=== PATIENT | male | born 1940 | race Caucasian/White ===

== ENCOUNTER 2017-05-06 08:34 | Outpatient (CLI) | payer MEDICARE, BC ==
--- NOTE | 2017-05-06 10:03 | ULT ---
ABDOMINAL AORTIC ULTRASOUND: DATE: 05/06/17. COMPARISON: None. HISTORY: Assess for abdominal aortic aneurysm, screening exam. TECHNIQUE: Multiplanar, sarabia scale sonographic imaging of the abdominal aorta is obtained. Provided images inc lude color flow and spectral analysis of the abdominal aorta and common iliac arteries respectively. FINDINGS: On sagittal imaging in the AP dimension, the mid abdominal aorta measures up to 1.7 cm and the dista l abdominal aorta measures up to 1.6 cm. Bilateral common iliac arteries are patent. On transverse imaging, distal abdominal aorta measures 1.8 x 1.6 cm, mid abdominal aorta measures 1.7 x 1.5 cm, a nd proximal abdominal aorta measures 2.6 x 2.4 cm. No sonographic evidence of abdominal aortic aneu rysm within the imaged portions of the abdominal aorta. IMPRESSION: No sonographic evidence of abdominal aortic aneurysm. POS: [facility]
== END 2017-05-06 08:35 | disposition home or self-care (01) ==
LOC: ULT 08:34
PROVIDERS: ATTEND Family Medicine
DX: Z13.6 Encounter for screening for cardiovascular disorders (principal)
CPT/HCPCS: 76775

== ENCOUNTER 2018-06-30 09:41 | Emergency (ER) | payer MEDICARE, BC ==
[2018-06-30 10:40] LABS: #Eosinphils 0.1 thou/uL (0.0-0.7); #Lymphocytes 1.1 thou/uL (1.20-3.40); #Monocytes 0.7 thou/uL (0.11-0.59); #Neutrophils 4.4 thou/uL (1.40-6.50); %Basophils 0.5 % (0.0-1.0); %Eosinophils 1.6 % (0.0-10.0); %Lymphocytes 17.3 % (21.0-51.0); %Monocytes 10.4 % (0.0-10.0); %Neutrophils 70.2 % (42.0-75.0); Hemoglobin 15.1 g/dL (14.0-18.0); Mean Corpuscular HGB CONC 31.3 g/dL (32.0-36.0); Mean Corpuscular Hemoglobin 30.7 pg (27.0-31.0); Mean Corpuscular Volume 97.9 fL (78.0-98.0); Mean Platelet Volume 7.8 fL (7.4-10.4); Platelet Count 156 thou/uL (130-400); RBC Distribution Width 12.9 % (11.5-14.5); Red Blood Cell (RBC) Count 4.91 mill/uL (4.70-6.10); White Blood Cell (WBC) Count 6.3 thou/uL (4.8-10.8)
--- NOTE | 2018-06-30 11:03 | RAD ---
ONE VIEW CHEST: History: Chest pain. Comparison: None. FINDINGS: Normal cardiac silhouette. The pulmonary vessels and hilum are normal. Costophrenic angles are clear. No mass. No consolidation. No pneumothorax or osseous abnormality. IMPRESSION: No acute cardiopulmonary process. POS: [facility]
[2018-06-30 11:08] LABS: ALT (SGPT) Less than 7 U/L (8-55); AST (SGOT) 24 U/L (5-34); Albumin 4.2 g/dL (3.4-4.8); Alkaline Phosphatase 82 U/L (40-150); Anion Gap 12 mmol/L (10-20); BUN (Urea Nitrogen) 31 mg/dL (8.4-25.7); CK (CPK) 142 U/L (30-200); Calc. Creatinine Clearance 0 mL/min (70-130); Calcium 9.2 mg/dL (7.8-10.44); Carbon Dioxide 24 mmol/L (23-31); Chloride 109 mmol/L (98-107); Estimated GFR-MDRD 41; Globulin 3.2 g/dL (2.4-3.5); Glucose 108 mg/dL (83-110); Potassium 3.8 mmol/L (3.5-5.1); Protein, Total 7.4 g/dL (5.8-8.1); Sodium 141 mmol/L (136-145)
[2018-06-30 11:11] LABS: CKMB 2.3 ng/mL (0-6.6)
--- NOTE | 2018-07-02 14:38 | EKG ---
Test Reason : Blood Pressure : / mmHG Vent. Rate : 063 BPM Atrial Rate : 063 BPM P-R Int : 150 ms QRS Dur : 086 ms QT Int : 422 ms P-R-T Axes : 000 -14 037 degrees QTc Int : 431 ms Sinus rhythm with occasional Premature ventricular complexes Minimal voltage criteria for LVH, may be normal variant Junctional ST depression, probably normal Borderline ECG Confirmed by DEVON FOSTER D.O. ([id number]), development editor JAMIE BALLARD ([id number]) on 07/02/2018 2:38:02 PM Referred By: Confirmed By:DEVON FOSTER D.O.
== END 2018-06-30 13:35 | disposition home or self-care (01) ==
LOC: ERS 09:41
DX: Z04.3 Encounter for examination and observation following other accident (principal); I10 Essential (primary) hypertension; I25.10 Atherosclerotic heart disease of native coronary artery without angina pectoris; Z87.891 Personal history of nicotine dependence; Z79.82 Long term (current) use of aspirin; Z79.899 Other long term (current) drug therapy
CPT/HCPCS: 36415; 71045; 80053; 82550; 82553; 84484; 85025; 93005